=== PATIENT | female | born 1980 | race Caucasian/White ===

== ENCOUNTER 2020-11-27 08:00 | Inpatient (IN) | payer BC ==
[~2020-11-27] VITALS: Ht 172.7 cm; Wt 95.7 kg
[2020-11-27] MEDS ORDERED: IV NORMAL SALINE 1000 ML BAG IV ONE ×2 (08:15→09:45)
[2020-11-27] MEDS ORDERED: PANTOPRAZOLE SODIUM 40 MG VIAL IV ONE (08:15)
[2020-11-27] MEDS ORDERED: ONDANSETRON 4 MG/2 ML VIAL IV ONE (08:15)
[2020-11-27] MEDS ORDERED: ONDANSETRON 4 MG/2 ML VIAL ONE (08:27)
[2020-11-27] MEDS ORDERED: PANTOPRAZOLE SODIUM 40 MG VIAL ONE (08:27)
[2020-11-27 08:32] LABS: BASOPHILS % (AUTO) 0.3 % (0.0-2.0); EOSINOPHILS # (AUTO) 0.1 K/uL (0.0-0.7); EOSINOPHILS % (AUTO) 1.3 % (0.0-7.0); HEMATOCRIT 38.5 % (31.2-41.9); HEMOGLOBIN 12.9 g/dL (10.9-14.3); LYMPHOCYTES # (AUTO) 1.7 K/uL (20.0-40.0); LYMPHOCYTES % (AUTO) 17.2 % (20.5-51.5); MEAN CORPUSCULAR HEMOGLOBIN 30.1 uug (24.7-32.8); MEAN CORPUSCULAR HGB CONC 34 g/dL (32.3-35.6); MEAN CORPUSCULAR VOLUME 89.9 fL (75.5-95.3); MONOCYTES % (AUTO) 10.2 % (0.0-11.0); NEUTROPHILS # (AUTO) 6.9 K/uL (1.8-8.9); PLATELET COUNT (AUTO) 317 K/uL (179-408); RED BLOOD CELL COUNT(AUTO) 4.28 MIL/uL (3.63-4.92); WHITE BLOOD COUNT (AUTO) 9.7 K/uL (3.8-11.8)
[2020-11-27 08:41] LABS: CARBON DIOXIDE 21 mmol/L (21-32); CHLORIDE 99 mmol/L (98-107); CREATININE 0.7 mg/dL (0.6-1.3); POTASSIUM 4.1 mmol/L (3.5-5.1); UREA NITROGEN, BLOOD 12 mg/dL (7-18)
[2020-11-27 08:42] LABS: GLUCOSE 367 mg/dL (74-106)
[2020-11-27 08:47] LABS: ALANINE AMINOTRANSFERASE 25 U/L (14-59); ALKALINE PHOSPHATASE 145 U/L (50-136); ASPARTATE AMINOTRANSFERASE 20 U/L (15-37); BILIRUBIN,DIRECT 0.3 mg/dL (0.0-0.2); LIPASE 45 U/L (73-393); TOTAL PROTEIN, SERUM 6.9 g/dL (6.4-8.2)
--- NOTE | 2020-11-27 09:40 | NUR ---
Pt given ice chips per pt request (okay with ).
--- NOTE | 2020-11-27 09:43 | NUR ---
Per pt to be admitted to tele, plan of care discussed with pt by . Called tele floor for bed assignment, there are no beds available due to staffing issue per charge nurse, hospital nursing call centre supervisor aware.
[2020-11-27] MEDS ORDERED: KETOROLAC TROMETHAMINE 30 MG INJ IVP ONE (09:45)
[2020-11-27] MEDS ORDERED: KETOROLAC TROMETHAMINE 30 MG INJ ONE (09:56)
[2020-11-27] MEDS ORDERED: INSULIN REGULAR, HUMAN 300 UNIT/3 ML VIAL ONE (10:13)
[2020-11-27] MEDS ORDERED: INSULIN REGULAR, HUMAN 300 UNIT/3 ML VIAL IV ONE (10:30)
--- NOTE | 2020-11-27 10:40 | NUR ---
Pt resting in gurney and talking on cell phone, pt appears comfortable. NAD noted, pending tele admission.
[2020-11-27] MEDS ORDERED: HYDR-3980 PO (10:41)
[2020-11-27] MEDS ORDERED: FAMO20TA8 PO (11:03)
[2020-11-27] MEDS ORDERED: METO25TA6 PO (11:03)
[2020-11-27] MEDS ORDERED: CETI-90 PO (11:03)
[2020-11-27] MEDS ORDERED: HUMALOG INSULIN PUMP SQ (11:03)
[2020-11-27] MEDS ORDERED: OLME20TA13 PO (11:03)
[2020-11-27] MEDS ORDERED: PANT40TA49 PO (11:03)
[2020-11-27] MEDS ORDERED: MONT10TA22 PO (11:03)
[2020-11-27] MEDS ORDERED: MORPHINE SULFATE 2 MG/1 ML DISP.SYRIN ONE (12:14)
[2020-11-27] MEDS ORDERED: MORPHINE SULFATE 4 MG/1 ML DISP.SYRIN IV ONE (12:15)
--- NOTE | 2020-11-27 12:30 | NUR ---
Pt eating lunch, tolerated well with no n/v.
[2020-11-27] MEDS ORDERED: HYDROCODONE/APAP 10-325 MG TABLET PO ONE (13:00)
--- NOTE | 2020-11-27 13:06 | NUR ---
Pt c/o abd brenda, mediated with Anita (per pt request) and Dr.Sauer valdivia.
[2020-11-27] MEDS ORDERED: HYDROCODONE/APAP 10-325 MG TABLET ONE (13:12)
[2020-11-27] MEDS ORDERED: MORPHINE SULFATE 2 MG/1 ML DISP.SYRIN IV PRN (14:00)
[2020-11-27] MEDS ORDERED: DEXTROSE 50% 50 ML DISP.SYRIN IV PRN (14:00)
--- NOTE | 2020-11-27 16:19 | NUR ---
PT AND FAMILY UNABLE TO REMEMBER DRUGS AND DOSAGES THE PT TAKES. REQUESTED TO BRING MEDS SOON POSSIBLE.
[2020-11-27] MEDS: METOPROLOL TARTRATE 25 MG TABLET PO SCH ×2 (16:20→20:32)
[2020-11-27] MEDS ORDERED: METOPROLOL TARTRATE 50 MG TABLET ONE (16:22)
[2020-11-27] MEDS: BLOOD SUGAR DIAGNOSTIC 1 EACH STRIP VI SCH ×3 (16:25→23:48)
--- NOTE | 2020-11-27 16:25 | NUR ---
Accu-check = 118, pt resting in gurney with NAD noted. There are still no tele beds available until further notice.
--- NOTE | 2020-11-27 17:40 | NUR ---
SBAR report given to Keaton ALEX via telephone.
--- NOTE | 2020-11-27 18:00 | NUR ---
RECEIVED FROM [employer]IA [employer]. A&O X3 ORIENTED TO SURROUNDINGS.
--- NOTE | 2020-11-27 18:00 | NUR ---
Pt trans to tele floor, NAD noted.
[2020-11-27 18:56] VITALS: BP 121/65
--- NOTE | 2020-11-27 19:15 | NUR ---
received patient awake , able to follow command , complains of pain on the head 5 /10 , iv intact on the lac ,
[2020-11-27] MEDS: HYDROCODONE/APAP 5-325MG TABLET PO PRN (19:31)
[2020-11-27] MEDS: ONDANSETRON 4 MG/2 ML VIAL IV PRN (19:32)
[2020-11-27 20:00] VITALS: BP 114/62
[2020-11-27] MEDS: IV NS 1000 ML 1,000 ML IV PRN (20:31)
[2020-11-27] MEDS: INSULIN REGULAR, HUMAN 300 UNIT/3 ML VIAL SQ PRN (21:45)
--- NOTE | 2020-11-27 23:30 | NUR ---
* Mainitains optimal blood glucose levels * Exhibits no loss of weight * Maintains balanced intake and output Addendum: 11/27/20 at 2330 by YULIANA DE JESUS RN Amended: Links added.
--- NOTE | 2020-11-27 23:31 | NUR ---
* Mainitains optimal blood glucose levels * Exhibits no loss of weight * Maintains balanced intake and output Addendum: 11/27/20 at 2332 by YULIANA DE JESUS RN Amended: Links added.
[2020-11-27] MEDS: BENZOCAINE/MENTH/CETYLPYRD LOZENGE MM PRN (23:55)
[2020-11-28] VITALS: BP 130/62
--- NOTE | 2020-11-28 00:30 | NUR ---
awake , oriented , given plenty of snacks and juices for latest blood sugar
[2020-11-28] MEDS: HYDROCODONE/APAP 5-325MG TABLET PO PRN (01:11)
[2020-11-28] MEDS: IV NS 1000 ML 1,000 ML IV PRN ×3 (03:33→18:33)
[2020-11-28 04:00] VITALS: BP 130/66
[2020-11-28] MEDS: BLOOD SUGAR DIAGNOSTIC 1 EACH STRIP VI SCH ×8 (04:25→23:51)
[2020-11-28] MEDS: INSULIN REGULAR, HUMAN 300 UNIT/3 ML VIAL SQ PRN ×5 (04:25→23:52)
--- NOTE | 2020-11-28 04:25 | NUR ---
awake , oriented, able to follow command , patient was given plenty of snacks and juices for latest blood sugar
[2020-11-28 06:26] LABS: BASOPHILS % (AUTO) 0.3 % (0.0-2.0); EOSINOPHILS # (AUTO) 0.1 K/uL (0.0-0.7); EOSINOPHILS % (AUTO) 1.7 % (0.0-7.0); HEMATOCRIT 30.5 % (31.2-41.9); HEMOGLOBIN 10.3 g/dL (10.9-14.3); LYMPHOCYTES # (AUTO) 2.1 K/uL (20.0-40.0); LYMPHOCYTES % (AUTO) 44.6 % (20.5-51.5); MEAN CORPUSCULAR HEMOGLOBIN 30.2 uug (24.7-32.8); MEAN CORPUSCULAR HGB CONC 34 g/dL (32.3-35.6); MEAN CORPUSCULAR VOLUME 89.7 fL (75.5-95.3); MONOCYTES # (AUTO) 0.7 K/uL (2.0-10.0); MONOCYTES % (AUTO) 15.2 % (0.0-11.0); NEUTROPHILS # (AUTO) 1.8 K/uL (1.8-8.9); NEUTROPHILS % (AUTO) 38.2 % (38.5-71.5); PLATELET COUNT (AUTO) 258 K/uL (179-408); WHITE BLOOD COUNT (AUTO) 4.8 K/uL (3.8-11.8)
[2020-11-28 07:06] LABS: CARBON DIOXIDE 23 mmol/L (21-32); CHLORIDE 109 mmol/L (98-107); CHOLESTEROL 88 mg/dL (<200); CREATININE 0.5 mg/dL (0.6-1.3); GLUCOSE 103 mg/dL (74-106); HDL CHOLESTEROL 36 mg/dL (40-60); MAGNESIUM 1.6 mg/dL (1.8-2.4); PHOSPHOROUS 5.5 mg/dL (2.5-4.9); POTASSIUM 3.7 mmol/L (3.5-5.1); TRIGLYCERIDES 100 MG/DL (30-150); UREA NITROGEN, BLOOD 10 mg/dL (7-18)
[2020-11-28 07:33] LABS: THYROID STIMULATING HORMONE < 0.007 mIU/mL (0.358-3.740)
[2020-11-28] MEDS ORDERED: HYOS-15 PO (07:45)
[2020-11-28] MEDS: BENZOCAINE/MENTH/CETYLPYRD LOZENGE MM PRN ×4 (07:47→23:08)
--- NOTE | 2020-11-28 08:07 | NUR ---
DR SIMPSON HERE TO SEE PATIENT BLOOD SUGAR IS 161 PATIENT HAS AN INSULIN PUMP AND DR SIMPSON SUSPENDED PATIENTS BASE RATE BLOOD SUGAR AT THIS TIME IS [address] SIMPSON STATED TO NOT GIVE ANY COVERAGE PATIENT TO RECHECK HER BLOOD SUGAR WITH HER FREE STYLE MACHINE IN A COUPLE OF HOURS TO SEE HOW HER BLOOD SUGAR IS GOING.PATIENT AWARE AND MD ALSO STATED TO START PATIENT ON [employer] AND THEN TO CHANGE HER AGGRESSIVE COVERAGE TO MILD AFTER SHE RECEIVES THE LANTUS TONITE WILL ENDORSE.
[2020-11-28] MEDS: PANTOPRAZOLE SODIUM 40 MG VIAL IV SCH (08:56)
[2020-11-28] MEDS: MAGNESIUM SULFATE/D5W 100 ML IV SCH ×2 (08:57→10:07)
[2020-11-28] MEDS: MONTELUKAST SODIUM 10 MG TABLET PO SCH (09:05)
[2020-11-28] MEDS: LOSARTAN POTASSIUM 25 MG TABLET PO SCH (09:05)
[2020-11-28] MEDS: METOPROLOL TARTRATE 25 MG TABLET PO SCH ×2 (09:06→16:30)
--- NOTE | 2020-11-28 10:05 | NUR ---
STATED FEELS LIKE VOMITING MEDICATED WITH ZOFRAN ORDERED.
--- NOTE | 2020-11-28 10:07 | NUR ---
BLOOD SUGAR AT THIS TIME IS 221 CALLED AND LEFT A MESSAGE FOR DR SIMPSON AND ALSO PATIENT C/O HEADACHE OFFERED NORCO PATIENT DID NOT HAVE TYLENOL ORDER BUT SHE REFUSED AWAITING FOR DR SIMPSON TO RETURN CALL.
[2020-11-28] MEDS: ACETAMINOPHEN 325 MG TABLET PO PRN ×3 (10:28→23:12)
--- NOTE | 2020-11-28 10:28 | NUR ---
CALL RECEIVED FROM DR SIMPSON WITH NEW ORDERS STATED TO GIVE INSULIN PER THE SLIDING SCALE AND THEN RECHECK SCHEDULED AND CONTINUE WITH THE COVERAGE ORDERED.TYLENOL GIVEN ORDERED FOR C/O HEADACHE.WILL CONTINUE TO OBSERVE.
[2020-11-28 11:36] VITALS: BP 149/65
[2020-11-28 12:54] LABS: EOSINOPHILS % (MANUAL) 1 % (0-8); LYMPHOCYTES % (MANUAL) 45 % (20-40); MONOCYTES % (MANUAL) 12 % (2-10); NEUTROPHILS % (MANUAL) 42 % (42-75)
[2020-11-28] MEDS: HYOSCYAMINE SULFATE 0.125 MG TABLET PO PRN (13:01)
--- NOTE | 2020-11-28 14:28 | NUR ---
RESTING IN BED AT THIS TIME WITH HER FATHER VISITING DENIES DISCOMFORTS IVF IN PROGRESS ORDERED WITH NO S/S OF INFILTERATION ON SITE.ALL NEEDS ATTENDED WILL CONTINUE TO OBSERVE.
[2020-11-28 15:48] VITALS: BP 151/71
--- NOTE | 2020-11-28 18:33 | NUR ---
RESTING IN BED C/O HEADACHE MEDICATED ORDERED REMAIN ON IVF ORDERED WITH NO S/S OF INFILTERATION AT THIS TIME NO S/S OF HYPO/HYPERGLYCEMIC REACTIONS AT THIS TIME WILL CONTINUE TO OBSERVE.
--- NOTE | 2020-11-28 19:00 | NUR ---
received patient sleeping , denies pain at this time , iv ns 150 ml running , on room air , ambulatory
[2020-11-28 20:12] VITALS: BP 150/59
[2020-11-28] MEDS ORDERED: INSULIN GLARGINE,HUM 300 UNITS/3 ML CARTRIDGE SQ SCH (21:00)
[2020-11-28] MEDS ORDERED: DEXTROSE 50% 50 ML DISP.SYRIN IV PRN (23:45)
[2020-11-29] MEDS: IV NS 1000 ML 1,000 ML IV PRN (01:31)
--- NOTE | 2020-11-29 02:00 | NUR ---
patient requested morphine , and opened and about to scan , patient called and refused to the medication , wasted the open medication with hot dip plating supervisor
[2020-11-29] MEDS: HYDROCODONE/APAP 5-325MG TABLET PO PRN (02:12)
[2020-11-29] MEDS: BLOOD SUGAR DIAGNOSTIC 1 EACH STRIP VI SCH ×3 (04:23→11:55)
[2020-11-29] MEDS: INSULIN REGULAR, HUMAN 300 UNIT/3 ML VIAL SQ PRN ×2 (04:25→07:53)
[2020-11-29 04:50] VITALS: BP 171/80
[2020-11-29] MEDS: ACETAMINOPHEN 325 MG TABLET PO PRN (05:40)
--- NOTE | 2020-11-29 06:30 | NUR ---
awake , oriented, tylenol given as per request , glucerna given ,, as per request ,iv of ns 150 ml running iv intact
[2020-11-29 06:43] LABS: BASOPHILS % (AUTO) 0.5 % (0.0-2.0); EOSINOPHILS # (AUTO) 0.1 K/uL (0.0-0.7); EOSINOPHILS % (AUTO) 1.8 % (0.0-7.0); HEMATOCRIT 32.1 % (31.2-41.9); HEMOGLOBIN 10.5 g/dL (10.9-14.3); LYMPHOCYTES # (AUTO) 1.7 K/uL (20.0-40.0); LYMPHOCYTES % (AUTO) 32.3 % (20.5-51.5); MEAN CORPUSCULAR HEMOGLOBIN 29.5 uug (24.7-32.8); MEAN CORPUSCULAR HGB CONC 33 g/dL (32.3-35.6); MEAN CORPUSCULAR VOLUME 89.8 fL (75.5-95.3); MONOCYTES # (AUTO) 0.7 K/uL (2.0-10.0); MONOCYTES % (AUTO) 12.4 % (0.0-11.0); NEUTROPHILS # (AUTO) 2.8 K/uL (1.8-8.9); PLATELET COUNT (AUTO) 217 K/uL (179-408); RED BLOOD CELL COUNT(AUTO) 3.58 MIL/uL (3.63-4.92); WHITE BLOOD COUNT (AUTO) 5.3 K/uL (3.8-11.8)
[2020-11-29 07:02] LABS: CARBON DIOXIDE 23 mmol/L (21-32); CHLORIDE 105 mmol/L (98-107); CREATININE 0.4 mg/dL (0.6-1.3); GLUCOSE 185 mg/dL (74-106); MAGNESIUM 1.6 mg/dL (1.8-2.4); POTASSIUM 3.6 mmol/L (3.5-5.1); UREA NITROGEN, BLOOD 7 mg/dL (7-18)
--- NOTE | 2020-11-29 07:10 | NUR ---
received patient in bed awake, in stable condition, no complains of any pain or discomfort at this time. will continue to monitor.
[2020-11-29 08:00] VITALS: BP 159/78
[2020-11-29] MEDS: PANTOPRAZOLE SODIUM 40 MG VIAL IV SCH (08:00)
[2020-11-29] MEDS: ONDANSETRON 4 MG/2 ML VIAL IV PRN (08:01)
[2020-11-29] MEDS: BENZOCAINE/MENTH/CETYLPYRD LOZENGE MM PRN ×2 (08:08→10:47)
[2020-11-29] MEDS: MONTELUKAST SODIUM 10 MG TABLET PO SCH (08:08)
[2020-11-29] MEDS: METOPROLOL TARTRATE 25 MG TABLET PO SCH (08:09)
[2020-11-29] MEDS: LOSARTAN POTASSIUM 25 MG TABLET PO SCH (08:09)
[2020-11-29] MEDS: MAGNESIUM SULFATE/D5W 100 ML IV SCH ×2 (08:15→09:19)
--- NOTE | 2020-11-29 08:30 | NUR ---
seen by Dr. Lucia, patient being discharged today. Magnesium level 1.6, order for 2 bags of magnesium replacement. patient aware regarding discharge. stated will leave in the afternoon.
--- NOTE | 2020-11-29 10:55 | NUR ---
patient stated that she checked her blood sugar on her free style machine and result was 259 and she stated that she gave herself a bolus of 4.6 units of regular insulin from her insulin pump. she is alert and oriented with no s/s of hypo/hyperglycemic reactions at this time. patient is a type 1 diabetic, manages her own insulin at home. her insulin pump was placed on hold yesterday but she apparently stated that she needed to use it and did it on her own. patients mother at bedside. discharge planning. preparing papers for patient to leave after lunch. will recheck blood sugar at 1200 as ordered.
[2020-11-29] MEDS: HYOSCYAMINE SULFATE 0.125 MG TABLET PO PRN (11:12)
--- NOTE | 2020-11-29 11:53 | NUR ---
PATIENT IN ON Q4HR BLOOD SUGAR CHECK DUE AT THIS TIME, CHECKED AND BLOOD SUGAR IS 267. PATIENT REFUSED COVERAGE BECAUSE SHE TOOK HER OWN INSULIN AT 1052 THIS MORNING.
--- NOTE | 2020-11-29 12:00 | NUR ---
patients blood pressure at this time is 171/85 heart rate 111. called and spoke to notified him of elevated blood pressure and he said to recheck blood pressure manually and if less than 160 ok for patient to be discharged but if above 160 then give metoprolol 10mg and then can discharge patient after.
[2020-11-29 12:30] VITALS: BP 150/79
--- NOTE | 2020-11-29 12:30 | NUR ---
patients blood pressure manually rechecked at this time 150/79 a symptomatic, instructed to continue her metoprolol as ordered when she gets home. patient expresses understanding.
[2020-11-29 12:40] VITALS: BP 171/85
--- NOTE | 2020-11-29 14:30 | NUR ---
PATIENT DISCHARGED PICKED UP[ BY [facility] PATIENTS FRIEND IN SATISFACTORY CONDITION WITH DISCHARGE INSTRUCTIONS AND ALL OF HER PERSONAL BELONGINGS PATIENT INSTRUCTED TO CALL FOR A FOLLOW UP APPOINTMENT WITH HER PRIMARY MD DIGITAL PRODUCTION MANAGER AND GI AND SHE EXPRESSED UNDERSTANDING.THERE ARE NO NEW MEDICATIONS PRESCRIBED AT THIS TIME.
[2020-11-30] MEDS ORDERED: PANTOPRAZOLE SODIUM 40 MG TABLET.DR PO SCH (07:00)
[2020-11-30] MEDS ORDERED: MONTELUKAST SODIUM 10 MG TABLET PO SCH (18:00)
== END 2020-11-29 14:30 | disposition home or self-care (01) | DRG 639 ==
LOC: ER 08:00 → TELE3 17:46
PROVIDERS: ATTEND Family Medicine
DX: E10.10 Type 1 diabetes mellitus with ketoacidosis without coma (principal); K31.84 Gastroparesis; Z96.41 Presence of insulin pump (external) (internal); Z20.822 Contact with and (suspected) exposure to COVID-19; E05.90 Thyrotoxicosis, unspecified without thyrotoxic crisis or storm; E10.43 Type 1 diabetes mellitus with diabetic autonomic (poly)neuropathy; E83.42 Hypomagnesemia; I10 Essential (primary) hypertension; M94.0 Chondrocostal junction syndrome [Tietze]; Z79.4 Long term (current) use of insulin; Z82.49 Family history of ischemic heart disease and other diseases of the circulatory system; Z88.2 Allergy status to sulfonamides; E10.65 Type 1 diabetes mellitus with hyperglycemia
CPT/HCPCS: 36415; 70030-TC; 71045; 83690; 83735; 84100; 84443; 85025; 93005; A4663; C9113; G0378; J1815; J1885; J2270; J2405; J3475; J7030